=== PATIENT | male | born 1945 | race Caucasian/White ===

== ENCOUNTER 2017-04-03 20:04 | Inpatient (IN) | payer MEDICARE, OTHER ==
--- NOTE | ~2017-04-03 | HP ---
History And Physical [place] [id number] [place]. [address] NAME: LLOYD MOORE : 45 STATUS : ADM Natalie PAT#: [id number] AGE: 71 ADM/REG DATE : 04/03/17 MR#: [id number] REPORT SERV DATE: 04/04/17 DICTATED BY: LOAN PASTOR DATE: 04/04/17 REPORT STATUS : Draft TRANSCRIBED BY: MODL DATE: 04/04/17 DATE OF ADMISSION: 04/03/2017 USER INTERFACE DESIGNER: Previously, Adarsh Reyes. No followup for three years. CHIEF COMPLAINT: Chest pressure similar to previous cardiac events. HISTORY OF PRESENT ILLNESS: A pleasant 71-year-old white gentleman with known history of CAD status post total of four stents per report, most recently, in August 2014 with stage procedures two drug eluting, two TREE placed to mid and distal RCA with POBA to RCA after multiple failed attempts for PCI in September [address] Reyes. The patient states that on 04/03/2017, while putting up small fence around his garden, he experienced similar chest pressure to previous cardiac events. He became profoundly nauseous, thought he just had not eaten, so he ate some cheese a little bit, drank some tea. He then developed midsternal chest pain that radiated across his chest to both of his shoulders and to his throat and jaw and down his arms. These symptoms were similar to his previous cardiac events. He reports associated shortness of breath, nausea, questionable diaphoresis since he was working outside. No dizziness and reports belching. At its most intense, the chest pain was rated a 6/10. He rates his shoulder blade discomfort an 8/10 at its most intense, currently he is pain free. He did try taking nitroglycerin at home prior to coming to the hospital, but it was outdated, and he received no relief from that. EMS was called, they provided full-dose aspirin and nitroglycerin sublingual x3 with improvement in his symptoms. The patient reports a personal history of three heart attacks. Denies history of stroke, DVT, or pulmonary embolus. The patient denies any recent fever or chills, no palpitations, no syncopal episodes. Denies PND or orthopnea. Of note, the patient's most recent intervention was performed by Dr. Reyes in September 2014. The patient has had no Cardiology followup, and states he has not taken any cardiac medications for approximately one year, some due to cost, and some due to no renewals, and poor primary and Cardiology follow up. PAST MEDICAL HISTORY: 1. CAD. a. Non-STEMI. b. Reported total of four stents, questionably all to RCA by Dr. Child and Dr. Reyes. c. 08/2014: Two TREE, two mid and distal RCA. d. 09/2014: POBA to RCA with multiple failed attempt for PCI. 2. Medical noncompliance. Off all cardiac medications for greater than one year. 3. Hypertension. 4. Dyslipidemia. 5. Denies diabetes. 6. Remote tobacco abuse. 7. Positive family history for early CAD. History And Physical [address] [address] NAME: LLOYD MOORE : 45 STATUS : ADM Natalie PAT#: [id number] AGE: 71 ADM/REG DATE : 04/03/17 MR#: [id number] REPORT SERV DATE: 04/04/17 DICTATED BY: LOAN PASTOR DATE: 04/04/17 REPORT STATUS : Draft TRANSCRIBED BY: MODBeena DATE: 04/04/17 PAST SURGICAL HISTORY: None. SOCIAL HISTORY: He is with three children. 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 Does not have a structured exercise routine. His son lives with him. Quit smoking in 1977. Quit drinking in 1977. Denies illicits. FAMILY HISTORY: Mother with CAD and bypass in her 80s from which she succumbed. Father of a heart attack at 64. Brother of a heart attack at 64. REVIEW OF SYSTEMS: A 14-point review of systems was performed, significant for HPI. No other contributory diagnoses identified. ALLERGIES: SUCCINYLCHOLINE LISTED. THE PATIENT WILL NOT TAKE DUE TO A RELATIVE'S FROM THIS MEDICINE. HOME MEDICATIONS: Currently none. PHYSICAL EXAMINATION: BLOOD PRESSURE: Bilateral blood pressure on arrival, right 177/91, left 173/100, this morning 172/103. PULSE: 89, RESPIRATORY RATE: 14, TEMPERATURE: 97.8, and O2 saturation 95% on room air. HEIGHT: 6 feet 0 inches. WEIGHT: 196 pounds. BMI of 26.6. GENERAL: Cooperative, in no apparent distress. HEENT: Pupils 2 mm, sclera nonicteric. Nares patent. Moist mucous membranes. No xanthelasma. NECK: Trachea midline, no thyromegaly. No JVD. No bruits. LYMPH: No cervical lymphadenopathy. No supraclavicular lymphadenopathy. RESPIRATORY: Unlabored respirations. Breath sounds clear bilaterally to posterior auscultation. No wheezes or rhonchi. CARDIOVASCULAR: 1/6 murmur best audible at right sternal border. EXTREMITIES: Without edema. Pulses 2+ bilaterally. ABDOMEN: Soft, nontender, nondistended, normal bowel sounds auscultated throughout. No organomegaly. SKIN: Warm, dry extremities. No pallor, or cyanosis. PSYCHIATRIC: Appropriate affect. Alert, oriented x3. MISCELLANEOUS: Band-Aids to right cheek. LABORATORY DATA: Troponin 0.06, 2.39, and 4.36. Potassium 3.5, BUN 16, creatinine 1.59 (baseline 0.802, 1.14), glucose 100, and magnesium 2.1. WBC 8.9, hemoglobin 14.0, hematocrit 40.1, and platelet count 287,000. EKG; sinus rhythm, LAD, inferior Q-waves, PVCs, T-wave abnormalities noted. Echo, 08/2014: EF of 55%. Moderate MR. Moderate concentric LVH. Ascending aorta measuring 4.0 cm. ASSESSMENT AND PLAN: History And Physical [address] [address] NAME: LLOYD MOORE : 45 STATUS : ADM Natalie PAT#: [id number] AGE: 71 ADM/REG DATE : 04/03/17 MR#: [id number] REPORT SERV DATE: 04/04/17 DICTATED BY: LOAN PASTOR DATE: 04/04/17 REPORT STATUS : Draft TRANSCRIBED BY: CORA DATE: 04/04/17 1. Non-ST elevation myocardial infarction. The patient will continue to be held n.p.o. for CoA plus or minus PCI today. Transfer to Cardiology Service. Continue heparin drip and aspirin. Add Coreg, amlodipine, and nitro paste. Check an echocardiogram. Await findings of cardiac catheterization. 2. Coronary artery disease. Noncompliant with medications for over one year. Resume aspirin, beta-ekta, nitroglycerin p.r.n., amlodipine and statin. Check a fasting lipid panel. Monitor blood pressure. 3. Murmur. Check an echocardiogram this morning. 4. Creatinine of 1.59. Initiate fluids for cath. Recheck BMP at 1200 hours. Baseline creatinine 0.802 and 1.14 in 2013. 5. Hypertension. Monitor blood pressure. Add Nitrol paste 1 inch to chest wall. Add beta-ekta and amlodipine. 6. Dyslipidemia. Check a fasting lipid panel. Add statin. 7. Medical noncompliance. We had a lengthy discussion with the patient regarding cardiac medication compliance to include aspirin, beta-ekta, amlodipine, Plavix, nitroglycerin, etc., or some combination thereof depending on the findings from his cardiac catheterization. YOGESH/CORA Loan Pastor, MSN, BRIDGE RIGGER-BC / [id number] CC: Loan Pastor, MIQUEL, BRIDGE RIGGER-BC GUANAKITO HANCOCK
[2017-04-03 19:47] LABS: BASOPHILS 0.3 %; BASOPHILS ABSOLUTE 0.03 10/3/uL (0.0-0.16); EOSINOPHILS ABSOLUTE 0.09 10/3/uL (0.0-0.53); HEMATOCRIT 40.1 % (40.0-51.0); IMMATURE GRANULOCYTES 0.2 %; IMMATURE GRANULOCYTES ABSOLUTE 0.02 10/3/uL (0.0-0.11); LYMPHOCYTES 27.1 %; LYMPHOCYTES ABSOLUTE 2.42 10/3/uL (0.67-4.30); MEAN CORPUS HGB CONC 34.9 g/dL (32.0-36.0); MEAN CORPUSCULAR HEMOGLOB 30.5 pg (26.0-34.0); MEAN CORPUSCULAR VOLUME 87.4 fL (80-100); MEAN PLATELET VOLUME 10.1 fL (9.2-13.0); MONOCYTES ABSOLUTE 0.54 10/3/uL (0.21-1.20); NEUTROPHILS 65.4 %; NEUTROPHILS ABSOLUTE 5.83 10/3/uL (2.02-8.40); PLATELET COUNT 287 10/3/uL (150-400); RBC DISTRIBUTION WIDTH 13.4 % (12.0-16.0); RED CELL COUNT 4.59 10/6/uL (4.7-6.1); WHITE BLOOD CELLS 8.9 10/3/uL (4.5-10.5)
[2017-04-03 19:48] LABS: MANUAL DIFF NO %
[2017-04-03 19:58] LABS: INTERNATIONAL NORMAL RATI 1.1 UNITS (-); PARTIAL THROMBO TIME 32.7 SEC (22.5-37.2); PROTIME (NOT ORD) 14.3 SEC (12.0-14.5)
[2017-04-03 20:04] LABS: BUN (BLOOD UREA NITROGEN) 16 MG/DL (6-23); CALCIUM, SERUM 9.2 MG/DL (8.5-10.4); CHLORIDE, SERUM 107 MMOL/L (96-112); CO2 (CARBON DIOXIDE) 21 MMOL/L (24-34); POTASSIUM, SERUM 3.3 MMOL/L (3.5-5.3); SODIUM, SERUM 140 MMOL/L (135-148)
[~2017-04-03 20:04] MED LIST: ASA5GR PO; BLOOD PRESSURE RX PO; CRANBERRY 4200 MG PO; EFFIENT10 PO; FLAXSEED OIL1000 MG PO; LIPITOR80 MG PO; LOP25 PO; MULTIVIT/MIN PO; NITROQUICK0.4 MG; PRIN20 PO; [UNRECOGNIZED DRUG - OTHER] PO
[2017-04-03 20:06] LABS: CREATININE 1.59 MG/DL (0.70-1.30); GFR AFRICAN AMERICAN 50 ML/MIN (>=60); GFR NON AFRICAN AMERICAN 43 ML/MIN (>=60); GLUCOSE, SERUM 100 MG/DL (60-99)
[2017-04-03 20:07] LABS: CHEST PAIN PROFILE TAT 0 Hrs 24 Mins; TROPONIN I 0.06 NG/ML (<0.05)
[2017-04-03 21:04] LABS: ASCORBIC ACID (UR NOT ORDER) NEG (NEG); BILIRUBIN, URINE NEGATIVE (NEG); ER URINALYSIS TAT 0 Hrs 10 Mins; KETONE, URINE TRACE MG/DL (NEG); LEUKOCYTE ESTERASE(NOT OR TRACE (NEG); NITRITE (URINE) NEG (NEG); WBC (NOT ORDERED) (RFLEX) 11 (0-5)
[2017-04-03] MEDS ORDERED: [UNRECOGNIZED DRUG - REMARK] (22:20)
[2017-04-04 03:57] LABS: POTASSIUM, SERUM 3.5 MMOL/L (3.5-5.3)
[2017-04-04 04:00] LABS: TROPONIN I 4.36 NG/ML (<0.05)
[2017-04-04 09:43] LABS: CHOL/HDL RATIO(NOT ORDER) 7.4 (0-5)
[2017-04-04 14:54] LABS: BUN (BLOOD UREA NITROGEN) 14 MG/DL (6-23); CALCIUM, SERUM 8.6 MG/DL (8.5-10.4); CHLORIDE, SERUM 112 MMOL/L (96-112); CO2 (CARBON DIOXIDE) 20 MMOL/L (24-34); GFR AFRICAN AMERICAN 78 ML/MIN (>=60); GFR NON AFRICAN AMERICAN 67 ML/MIN (>=60); GLUCOSE, SERUM 90 MG/DL (60-99); POTASSIUM, SERUM 3.9 MMOL/L (3.5-5.3); SODIUM, SERUM 141 MMOL/L (135-148)
[2017-04-05] MEDS ORDERED: NORV5 PO ×2 (08:42→08:43)
[2017-04-05] MEDS ORDERED: HALF81 PO (08:43)
[2017-04-05] MEDS ORDERED: LIPITOR40 PO (08:44)
[2017-04-05] MEDS ORDERED: COREG6 PO (08:44)
[2017-04-05] MEDS ORDERED: BRILINTA90 MG PO (08:45)
[2017-04-05] MEDS ORDERED: NITROQUICK0.4 MG SL (08:45)
[2017-04-05] MEDS ORDERED: PLAVIX PO (08:45)
== END 2017-04-05 09:29 | disposition home or self-care (01) | DRG 247 ==
LOC: ER 20:04 → CDU1 21:43 → SSU1 04-04 16:41
PROVIDERS: Clinical Nurse Specialist; Emergency Medicine; Internal Medicine Interventional Cardiology
PROC: 027034Z Dilation of Coronary Artery, One Artery with Drug-eluting Intraluminal Device, Percutaneous Approach (ICD-10-PCS; principal; 2017-04-04)
PROC: 4A023N7 Measurement of Cardiac Sampling and Pressure, Left Heart, Percutaneous Approach (ICD-10-PCS; 2017-04-04)
PROC: B2151ZZ Fluoroscopy of Left Heart using Low Osmolar Contrast (ICD-10-PCS; 2017-04-04)
PROC: B2111ZZ Fluoroscopy of Multiple Coronary Arteries using Low Osmolar Contrast (ICD-10-PCS; 2017-04-04)
DX: I21.4 Non-ST elevation (NSTEMI) myocardial infarction (principal); I50.22 Chronic systolic (congestive) heart failure; I34.0 Nonrheumatic mitral (valve) insufficiency; E78.5 Hyperlipidemia, unspecified; I25.10 Atherosclerotic heart disease of native coronary artery without angina pectoris; I49.3 Ventricular premature depolarization; Z95.5 Presence of coronary angioplasty implant and graft; I25.2 Old myocardial infarction; Z91.14 Patient's other noncompliance with medication regimen; Z87.891 Personal history of nicotine dependence; Z82.49 Family history of ischemic heart disease and other diseases of the circulatory system; Z88.8 Allergy status to other drugs, medicaments and biological substances
CPT/HCPCS: 71010; 80048; 80061; 81001; 83735; 84132; 84484; 85025; 85347; 85610; 85730; 93005; 93458; 99152; 99153; 99285; A9270-GY; C1725; C1769; C1874; C1887; C1894; C8929; C9600; J0360; J2250; J2405; J3010; Q9957; Q9967

== ENCOUNTER 2017-04-19 17:30 | Emergency (ER) | payer MEDICARE ==
[~2017-04-19 17:30] MED LIST changes: +BRILINTA90 MG PO; +COREG6 PO; +HALF81 PO; +LIPITOR40 PO; +NITROQUICK0.4 MG SL; +NORV5 PO; +PLAVIX PO; +[UNRECOGNIZED DRUG - REMARK]
[2017-04-19 20:09] LABS: BASOPHILS 0.1 %; BASOPHILS ABSOLUTE 0.02 10/3/uL (0.0-0.16); EOSINOPHILS 0.7 %; EOSINOPHILS ABSOLUTE 0.14 10/3/uL (0.0-0.53); HEMATOCRIT 29.5 % (40.0-51.0); HEMOGLOBIN 10.3 g/dL (13.6-17.8); IMMATURE GRANULOCYTES 0.4 %; IMMATURE GRANULOCYTES ABSOLUTE 0.07 10/3/uL (0.0-0.11); LYMPHOCYTES 10.1 %; LYMPHOCYTES ABSOLUTE 1.91 10/3/uL (0.67-4.30); MANUAL DIFF NO %; MEAN CORPUS HGB CONC 34.9 g/dL (32.0-36.0); MEAN CORPUSCULAR HEMOGLOB 30.7 pg (26.0-34.0); MEAN CORPUSCULAR VOLUME 87.8 fL (80-100); MEAN PLATELET VOLUME 9.5 fL (9.2-13.0); MONOCYTES 5.8 %; NEUTROPHILS 82.9 %; NEUTROPHILS ABSOLUTE 15.73 10/3/uL (2.02-8.40); PLATELET COUNT 316 10/3/uL (150-400); RED CELL COUNT 3.36 10/6/uL (4.7-6.1)
[2017-04-19 20:17] LABS: INTERNATIONAL NORMAL RATI 1.1 UNITS (-); PARTIAL THROMBO TIME 41.1 SEC (22.5-37.2); PROTIME (NOT ORD) 14.4 SEC (12.0-14.5)
[2017-04-19 20:18] LABS: ASCORBIC ACID (UR NOT ORDER) NEG (NEG); BILIRUBIN, URINE NEGATIVE (NEG); ER URINALYSIS TAT 0 Hrs 15 Mins; KETONE, URINE NEGATIVE (NEG); LEUKOCYTE ESTERASE(NOT OR MOD (NEG); NITRITE (URINE) NEG (NEG); WBC (NOT ORDERED) (RFLEX) 39 (0-5)
[2017-04-19 20:25] LABS: A/G RATIO 0.7 (0.7-1.9); ALBUMIN 3.1 G/DL (3.5-5.0); CALCIUM, SERUM 8.9 MG/DL (8.5-10.4); CHLORIDE, SERUM 104 MMOL/L (96-112); CREATININE 1.49 MG/DL (0.70-1.30); GFR AFRICAN AMERICAN 54 ML/MIN (>=60); GFR NON AFRICAN AMERICAN 47 ML/MIN (>=60); GLOBULIN 4.5 G/DL (2.5-4.1); GLUCOSE, SERUM 96 MG/DL (60-99); POTASSIUM, SERUM 3.3 MMOL/L (3.5-5.3); SGOT(AST) 15 U/L (5-40); SGPT(ALT) 15 U/L (5-65); SODIUM, SERUM 137 MMOL/L (135-148); TOTAL BILIRUBIN 0.6 MG/DL (0-1.2); TOTAL PROTEIN 7.6 G/DL (6.0-8.5)
[2017-04-19 20:26] LABS: LACTATE 0.9 MMOL/L (0.3-2.4)
[2017-04-19 20:28] LABS: ALKALINE PHOSPHATASE 81 U/L (45-117); BUN (BLOOD UREA NITROGEN) 19 MG/DL (6-23); CO2 (CARBON DIOXIDE) 27 MMOL/L (24-34)
[2017-04-19] MEDS ORDERED: THERGRANM PO (21:06)
[2017-04-19] MEDS ORDERED: ZOFRAN ODT4 MG PO (21:06)
[2017-04-19] MEDS ORDERED: CIP5 PO (21:07)
[2017-04-19 21:28] LABS: PROCALCITONIN 0.25 ng/mL (<0.5)
== END 2017-04-19 21:42 | disposition home or self-care (01) ==
LOC: ER 17:30
PROVIDERS: Physician Assistant
DX: N39.0 Urinary tract infection, site not specified (principal); R65.10 Systemic inflammatory response syndrome (SIRS) of non-infectious origin without acute organ dysfunction; I10 Essential (primary) hypertension; Z87.891 Personal history of nicotine dependence; Z95.5 Presence of coronary angioplasty implant and graft; Z88.4 Allergy status to anesthetic agent; Z79.82 Long term (current) use of aspirin; Z79.899 Other long term (current) drug therapy
CPT/HCPCS: 71010; 80053; 81001; 83605; 84145; 85025; 85610; 85730; 87040; 87086; 93005; 99284